=== PATIENT | female | born 1955 | race Asian ===

== ENCOUNTER 2025-08-18 18:41 | Inpatient (IN) | payer MEDICARE, MEDICAID ==
[~2025-08-18] VITALS: Ht 160 cm; Wt 63.5 kg
--- NOTE | 2025-08-18 19:03 | ELECTROCARDIOGRAPH REPORT ---
[facility] Test Date: 2025-08-18 Test Time: 18:55:40 Pat Name: ABBI JAUREGUI Department: EMERGENCY ROOM Room: Gender: F Try On Baster: : 1955 Requested By: BAKARI TURCIOS Order Number: [id number] Reading MD: Measurements Intervals [place] Rate: 84 P: 35 MI: 157 QRS: 31 QRSD: 90 T: -71 QT: 445 QTc: 527 Interpretive Statements Sinus rhythm Abnormal R-wave progression, early transition Abnormal T, consider ischemia, diffuse leads Prolonged QT interval Please click the below link to view image of tracing.
--- NOTE | 2025-08-18 19:05 | Physician Documentation ---
History of Present Illness ~ Chief Complaint: Chest Pain Stated Complaint: CARDIO Time Seen by MD: 18:59 HPI Patient presents to the emergency room sent from [facility] for evaluation of chest pain with EKG changes. Troponins negative. They were able to evaluate patient's EKG compared to last year and shows T-wave inversions in leads V2 through V5. Medication Reconciliation Allergies: Coded Allergies: amoxicillin (Verified Allergy, Unknown, RASH, HIVES, 08/18/25) denosumab (Verified Allergy, Unknown, JAW PAIN,, 08/18/25) lisinopril (Verified Allergy, Unknown, COUGH, 08/18/25) nitrofurantoin (Verified Allergy, Unknown, GI UPSET, 08/18/25) rosuvastatin (Verified Allergy, Unknown, INSOMNIA, DRY MOUTH, 08/18/25) Review of Systems ROS All review of systems negative except as per HPI Physical Exam Vital Signs: Temperature: 98.4, Source: Oral, Heart Rate: 94, Respiratory Rate: 17, BP: 190/77, Pulse Oximetry: 97, Weight: 20.450 Oxygen Flow Rate: 0 Physical Exam General: Patient is sleeping, easily arousable in no acute distress Head: Normocephalic and atraumatic. Eyes: Conjunctival normal. EOMI. PERRL. ENT: Mucous membranes moist. Neck: Supple, trachea is midline. Chest: Clear to auscultation bilaterally without rales, rhonchi, or wheezes. There is no accessory muscle use or retractions. Cardiac: RRR without murmurs, gallops, or rubs. Abd: Soft, nondistended, nontender, with normoactive bowel sounds. No guarding, rebound, or rigidity. Progress Results/Orders Results/Orders Orders - PABLO BUCKNER MD Cbc/Diff (08/18/25 19:01) BMP (08/18/25 19:01) Hs Troponin I W Calculations (08/18/25 19:01) Completed Orders - PABLO BUCKNER MD Electrocardiogram (08/18/25 ) Vital Signs 08/18/25 08/18/25 18:46 19:04 Temp 98.4 Pulse 94 Resp 17 17 B/P (MAP) 190/77 Pulse Ox 97 O2 Flow Rate 0 Medical Decision Making Additional information obtaine: other Findings Patient presented to the emergency room for evaluation of chest pain in the light of EKG changes. No active chest pain at this time and EKGs negative for ST-elevation. We will admit for further investigation. Heart Score: 4 Differential Dx:Considerations: Include: angina, aortic dissection, chest wall pain, cholelithiasis, CHF, costochondritis, esophageal reflux/spasm, gastritis, herpes zoster, myocardial infarction, pericarditis, pleuritis, pancreatitis, pneumonia, pneumothorax, pulmonary embolus, other Departure Admitted to Inpatient Unit: yes, to hospitalist Impression: Primary Impression: Chest pain Additional Impression: EKG changes Condition: Guarded Referrals: NO PRIMARY CARE PROVIDER (PCP) Signature Scribe Signature: No scribe Attestation: The note accurately reflects work and decisions made by me.Pablo Buckner MD 08/18/25 19:31 PABLO BUCKNER MD Aug 18, 2025 19:05
[2025-08-18 19:43] LABS: MEAN PLATELET VOLUME 9.2 FL (7.4-10.4); RED CELL DISTRIBUTION WIDTH 17.5 % (11.5-14.5)
[2025-08-18 20:01] LABS: LEUKOCYTE ESTERASE ,URINE TRACE (Neg); NITRITES, URINE NEGATIVE (Neg); OCCULT BLOOD,URINE NEGATIVE (Neg)
[2025-08-18 20:02] LABS: CREATININE 0.61 MG/DL (0.40-0.90); TOTAL CARBON DIOXIDE 23.4 MMOL/L (24-32); eCRCL 29 ML/MIN; eGFR > 90 ML/MIN
[2025-08-18 20:27] LABS: UA COLLECTION TYPE CLN CATCH MIDSTREAM
[2025-08-18 20:29] LABS: SQUAMOUS EPITHELIAL CELL,UR FEW /LPF (FEW)
--- NOTE | 2025-08-18 20:31 | HISTORY AND PHYSICAL-Residence ---
History & Physical Providers to CC Resident Creating Document: JUAN CARLOS MARTINEZ RES ~ History of Present Illness Reason for Admit\Complaint: Chest pain History of Present Illness The patient is a 69-year-old female with a history of type 2 diabetes mellitus, hypertension, hyperlipidemia, and osteoporosis who was transferred from [facility] for evaluation of chest pain and abnormal ECG findings. She reports intermittent left-sided chest pain, under her breast for approximately 10 days, described as pricking like, rated 4-5/10 in intensity. 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 She denies chest pain at rest and reports no clear additional aggravating or relieving factors. She denies shortness of breaths or diaphoresis. At the transferring facility, her ECG was compared with the prior ECG from last year and demonstrated new T-wave inversions in the anterior leads, prompting transfer for a higher level of care. Earlier today, she was evaluated by her primary care doctor Dr. Albarran at [facility], who referred her to the emergency department. Medications reviewed is notable for noncompliance with metformin and antihypertensive therapy. Allergies: Coded Allergies: amoxicillin (Verified Allergy, Unknown, RASH, HIVES, 08/18/25) denosumab (Verified Allergy, Unknown, JAW PAIN,, 08/18/25) lisinopril (Verified Allergy, Unknown, COUGH, 08/18/25) nitrofurantoin (Verified Allergy, Unknown, GI UPSET, 08/18/25) rosuvastatin (Verified Allergy, Unknown, INSOMNIA, DRY MOUTH, 08/18/25) Past Medical History Past Medical History Hypertension, hyperlipidemia, osteoporosis, diabetes type 2 Past Surgical History Surgical History Comment Right knee surgery Past Social History Social History Comment Patient lives with her in [place], happily . Denies smoking cigarettes, consuming alcohol, or using recreational drugs. She is independent in her daily activity and regularly do Jasvir Chi . ROS All Other Systems: Reviewed and Negative ROS As stated above in the HPI, otherwise all systems are reviewed and negative. Exam Vitals: Vital Signs Date Time Temp Pulse Resp B/P (MAP) Pulse Ox O2 Delivery O2 Flow Rate FiO2 08/18/25 19:04 17 08/18/25 18:46 98.4 94 97 0 General: Awake and Alert, no acute distress. HEENT: Conjunctiva pink, Sclera clear, Mucus Membranes moist. Neck: Supple without masses and tenderness. Resp: Unlabored. Lungs clear to auscultation bilaterally. Heart: 3rd heart sound auscultated. Heart rhythm irregular Abdomen: Soft and non tender no organomegaly Extremities: No cyanosis,clubbing or edema. Skin: Warm and Dry. Diagnostic Data Last Recorded Lab Results: 08/18/25 1910 Advance Care Planning Advanced Care plannin - 30 Minutes Additional Plan 1. Chest pain: HEART Score = 6, typical versus atypical angina Intermittent exertional chest pain with abnormal ECG changes at the transferring facility; concern for possible ischemic etiology Currently chest pain-free EKGs shows diffuse T-wave inversions and anterior and inferior leads. Troponins negative Admitted to telemetry floor for cardiac monitoring Lexiscan planned in the morning, NPO after midnight Transthoracic echo ordered Lipid panel, TSH, and hemoglobin A1c pending Aspirin, carvedilol, losartan, and atorvastatin started/resumed 2. Type 2 diabetes mellitus Prescribed metformin but noncompliant Hemoglobin A1c pending Hyperglycemia/hypoglycemia protocol in place 3. Hypertension, poorly controlled History of medication noncompliance. Home medications: Losartan 25 mg daily. We will resume home antihypertensive therapy and monitor blood pressure closely 4. Hyperlipidemia Home medications: Atorvastatin 30 mg p.o. daily Lipid panel pending Continue statin therapy 5. Osteoporosis Previously treated with Prolia, discontinued due to jaw pain No acute issues at this time Recommend outpatient PCP follow up Code status: Full code DVT prophylaxis: Darellx Juan Carlos Martinez Internal Medicine Resident, PGY-3 Patient assessed, case discussed with resident. I agree with the above assessment and plan with no changes. Jessica Choudhary MD Date of Service: Aug 18, 2025 Billing Provider: JESSICA CHOUDHARY MD, SHAMS, RES Aug 18, 2025 20:31 JESSICA CHOUDHARY MD Aug 18, 2025 21:08
[2025-08-18] MEDS ORDERED: ondansetron/PF 4mg/2ml inj IV PRN (20:40)
[2025-08-18] MEDS ORDERED: magnesium sulf-water 2g/50mL 50 ML IV PRN (20:40)
[2025-08-18] MEDS ORDERED: potassium Cl 40MEQ/1/2NS 520ml 520 ML IV PRN (20:40)
[2025-08-18] MEDS ORDERED: magnesium sulf-water 4G/100mL 100 ML IV PRN (20:40)
[2025-08-18] MEDS ORDERED: magnesium Cl slow-release 64mg tablet PO PRN (20:40)
[2025-08-18] MEDS ORDERED: potassium Cl 20 mEq SR tablet PO PRN ×2 (20:40)
[2025-08-18] MEDS ORDERED: aminophylline 250mg/10ml inj. IV PRN (20:45)
[2025-08-18] MEDS ORDERED: metoprolol tartrate 1mg/ml inj IV PRN (20:45)
[2025-08-18] MEDS ORDERED: LOSA25TA41 PO (20:57)
[2025-08-18] MEDS: aspirin 325mg tablet, delayed-release (Ecotrin) PO ONE (21:15)
[2025-08-19] VITALS (16 sets, daily range): BP systolic 107–180; BP diastolic 53–79; PULSE 74–133; RESP 14–24; TEMP 97.4–98.8; O2SAT 97–100
[2025-08-19] MEDS ORDERED: glucagon, human recombinant 1mg kit SUBCUT PRN (00:50)
[2025-08-19] MEDS ORDERED: dextrose 50%-water 50ml dispensing syringe IV PRN ×2 (00:50)
[2025-08-19] MEDS ORDERED: DEXTROSE 15 GM of carb/4 tabs (each vial/BOTTLE has 4 tablets) PO PRN ×2 (00:50)
[2025-08-19] MEDS: PERFLUTREN PROTEIN-A MICROSPHR (Optison) 0.22 MG/ML 3ML VIAL IV ONE (01:01)
[2025-08-19] MEDS ORDERED: ATOR-429 PO (03:42)
[2025-08-19] MEDS: INSULIN LISPRO 100 UNIT/ML INSULN.PEN MULTI-DOSE SQ SCH (07:00)
[2025-08-19] MEDS: aspirin 81mg, enteric-coated 1 TAB TABLET.DR PO SCH (08:00)
[2025-08-19] MEDS: K and/or MAG REPLACEMENT MC SCH (08:00)
[2025-08-19 08:07] LABS: MEAN PLATELET VOLUME 9.1 FL (7.4-10.4); RED CELL DISTRIBUTION WIDTH 16.9 % (11.5-14.5)
[2025-08-19 08:54] LABS: CHOL/HDL RATIO 4.1 (0.00-4.99); CREATININE 0.61 MG/DL (0.40-0.90); LDL CHOLESTEROL 154 MG/DL (50-100); TOTAL CARBON DIOXIDE 24.5 MMOL/L (24-32); eCRCL 73 ML/MIN; eGFR > 90 ML/MIN
[2025-08-19] MEDS: regadenoson 0.4mg/5ml syringe IV PRN (10:29)
--- NOTE | 2025-08-19 12:36 | RADIOLOGY REPORT ---
PROCEDURE: NM NM SUSHIL SCAN Exam Date: 08/19/2025 09:50 AM Reason for study/Clinical History: chest pain Comparison Study: None Myocardial Perfusion Study with SPECT TECHNIQUE: The patient received an intravenous injection of 7.2 mCi of technetium-99m sestamibi while at rest. After a short delay, SPECT tomographic images of the heart were obtained. The patient then went to the stress lab where they received an intravenous infusion of 0.[address] andard protocol. 28 mCi of technetium-99m sestamibi was injected intravenously immediately after the start of the lexiscan infusion. Gated SPECT tomographic images of the heart were acquired and processed. FINDINGS: No reversible perfusion defect. End diastolic volume: 46 mL End systolic volume: 15 mL The left ventricular ejection fraction is 67 %. (normal greater than 50%) IMPRESSION: No reversible defect. The left ventricular ejection fraction is 67 %.
--- NOTE | 2025-08-19 17:29 | PROGRESS NOTE- Residence ---
Progress Note - Resident Providers to CC Resident Creating Document: ОЛЬГА VALLE, RES ~ Antibiotic Timeout Antibiotic Ordered?: No Subjective Patient was seen and examined on bedside, she report yesterday she left sided chest pain , which was non radiating, sharp in nature and lasted for 5 minutes, pain occurs at rest, occured 2 times yesterday.she went to her regular doctor who suggested her to go to ER. Currently she is pain free Objective Vital Signs Date Time Temp Pulse Resp B/P (MAP) Pulse Ox O2 Delivery O2 Flow Rate FiO2 08/19/25 16:08 129/60 (83) 08/19/25 14:55 98.7 74 16 99 Room Air 08/19/25 08:00 0.0 Result Diagram: 08/19/25 0653 08/19/25 0653 General: awake, alert oriented to place, time, and person HEENT: No pallor present, no icterus, moist mucous membranes Neck: No masses and tenderness Resp: Unlabored. Lungs clear to auscultation bilaterally. Chest: Normal expansion. Cardiovascular: Regular Rate and rhythm, normal S1 and S2 without murmur, rub or gallop Abdomen: Soft and mildly tender in epigastrium, no organomegaly, no guarding and rigidity, bowel sounds present Neuro: No focal weakness in the upper and lower limb muscles, power of the muscles 5/5 bilateral upper and lower extremities, normal reflexes bilaterally. Cranial nerves intact Extremities: No cyanosis,clubbing or edema Skin: Warm and Dry. No lesions Psych: Normal affect Advance Care Planning Advanced Care plannin - 30 Minutes Assessment Assessment This is 69 year old female admitted for chest pain, further workup Plan Plan 1. Acute Coronary Syndrome Unstable angina Ekg shows multiple T wave inversions in multiple leads, normal axis, HR rate normal, no STEMI. HEART Score = 4 Currently chest pain-free Trops x2, 24, 25 Admitted to telemetry floor for cardiac monitoring Lexiscan showed=No reversible defect. Transthoracic echo ordered Continue aspirin 81 mg daily, carvediolol 3.12 mg BID 2. Type 2 diabetes mellitus HbA1c 6.7 Hyperglycemia/hypoglycemia protocol in place 3. Hypertension, poorly controlled History of medication noncompliance. Continue losartan 25 mg daily 4. Hyperlipidemia Continue home medication atorvastatin 80 mg daily p.o LDL 154 Cholesterol 217 Goal of LDL <70 5.Osteoporosis Previously treated with Prolia, discontinued due to jaw pain No acute issues at this time Recommend outpatient PCP follow up Code status: Full code DVT prophylaxis: Lovenox GI PROPHYLAXIS: PANTOPRAZOLE 40 MG po Disposition: Continue to monitor patient. Case has been discussed and reviewed by PGY2/PGY [address] Nahomy Valle PGY1 Date of Service: Aug 19, 2025 Billing Provider: MIGUEL ANGEL KIM MD, SANJAY, RES Aug 19, 2025 17:29
--- NOTE | 2025-08-19 17:44 | CARDIOLOGY REPORT ---
APPROVED REPORT EXAM: Comprehensive 2D, Doppler, and color-flow Echocardiogram. Patient Location: [facility] Blood Pressure: 180/76 mmHg Heart Rate: 85 bpm Indications Angina Hypertension Diabetes NO GROUP BURNER MACHINE NO Previous ECHO 2D Dimensions LA Diam 3.5 cm IVSd 1.2 (0.7-1.1cm) LVDd 4.4 cm PWd 1.0 (0.7-1.1cm) IVSs 1.6 (0.8-1.2cm) LVDs 2.9 (2.5-4.0cm) PWs 1.0 (0.8-1.2cm) LVOT Diameter 1.97 (1.8-2.4cm) LVEF(%) 63.7 (>50%) Ao Asc Diam. 3.10 cm IVC 12.25 mm FS (%) 34.4 % SV 56.6 ml CO 4.6 L/min M-Mode Dimensions Left Atrium(MM) 3.12 (2.5-4.0cm) Aortic Root 3.40 (2.2-3.7cm) Aortic Cusp Exc 1.91 (1.5-2.0cm) MV EPSS 0.6 (<0.5cm) Aortic Valve AoV Peak Earl. 157.7 cm/s AoV VTI 27.1 cm AO Peak GR. 9.9 mmHg AO Mean GR. 5 mmHg LVOT VTI 24.11 cm LVOT Peak Earl. 133.6 cm/s EMANI(VTI)/BSA 2.70 cm2/m2 EMANI (VTI) 2.70 cm2 AI P 1/2 Time 440 ms AV DI 0.89 % Mitral Valve MV E Velocity 50.0 cm/s MV Peak Gr. 3 mmHg MV DECEL TIME 380 ms MV A Velocity 77.5 cm/s MV PHT 64 ms E/A Ratio 0.6 MVA (PHT) 3.44 cm2 MV VMax 82.4 cm/s TDI Lateral E' P. V 8.58 cm/s E/Lateral E' 5.8 Tricuspid Valve TR P. Velocity 282 cm/s RAP ESTIMATE 10 mmHg TR Peak Gr. 32 mmHg RVSP 42 mmHg LEFT VENTRICLE The left ventricle is normal size with mild asymmetric septal hypertrophy. Overall systolic function is normal. Overall LVEF is 65-70%. RIGHT VENTRICLE RV is normal size and function. Estimated PA systolic pressure of 42 mm of mercury ATRIA The left atrium size is normal. AORTIC VALVE Trileaflet AV appears mildly sclerotic without stenosis. Moderate eccentric insufficiency against the anterior MV leaflet by color and spectral flow Doppler. MITRAL VALVE Mild mitral annular calcification without stenosis. Trace regurgitation by color and spectral flow Doppler. TRICUSPID VALVE The tricuspid valve is normal in structure with mild regurgitation by color and spectral flow Doppler. PULMONIC VALVE Pulmonic valve is grossly normal in structure with physiologic insufficiency by color and spectral flow Doppler. GREAT VESSELS The aortic root is normal in size. The ascending aorta is normal in size. The IVC is normal in size and collapses >50% with inspiration. PERICARDIUM Normal pericardium. No effusion. Other Information Study Quality: Adequate Conclusion Overall LVEF is 65-70%. The left ventricle is normal size with mild asymmetric septal hypertrophy. Overall systolic function is normal. RV is normal size and function. Estimated PA systolic pressure of 42 mm of mercury Mild mitral annular calcification without stenosis. Trace regurgitation by color and spectral flow Doppler. The tricuspid valve is normal in structure with mild regurgitation by color and spectral flow Doppler. Pulmonic valve is grossly normal in structure with physiologic insufficiency by color and spectral flow Doppler. Normal pericardium. No effusion.
[2025-08-19] MEDS: enoxaparin 30mg/0.3ml syringe SQ SCH (21:17)
[2025-08-20 02:00] VITALS: BP 125/64; PULSE 77; RESP 24; TEMP 97.4; O2SAT 98
[2025-08-20 06:46] LABS: MEAN PLATELET VOLUME 8.9 FL (7.4-10.4); RED CELL DISTRIBUTION WIDTH 17.1 % (11.5-14.5)
[2025-08-20 07:07] LABS: CREATININE 0.58 MG/DL (0.40-0.90); TOTAL CARBON DIOXIDE 24.4 MMOL/L (24-32); eCRCL 77 ML/MIN; eGFR > 90 ML/MIN
[2025-08-20 08:00] VITALS: RESP 18; O2SAT 98
[2025-08-20] MEDS: pantoprazole 40mg Tablet.DR PO SCH (08:46)
[2025-08-20 09:12] LABS: HBSAG SCREEN Negative (Negative); HEP B CORE AB, IGM Negative (Negative); HEP B CORE AB, TOT Negative (Negative)
[2025-08-20 10:45] VITALS: BP_SYST 118; BP_SYST 127; BP_SYST 134; BP_DIAS 67; BP_DIAS 68; BP_DIAS 70; PULSE 83; PULSE 85; PULSE 90
[2025-08-20] MEDS ORDERED: CYAN500T71 PO (12:56)
[2025-08-20] MEDS ORDERED: METF-900 PO (12:56)
[2025-08-20] MEDS ORDERED: COR3.125T PO (13:49)
[2025-08-20] MEDS ORDERED: ASPI81TA52 PO (13:49)
[2025-08-20] MEDS ORDERED: METF-1203 PO (14:03)
[2025-08-20] MEDS ORDERED: ATOR20TA66 PO (14:04)
[2025-08-20] MEDS ORDERED: LOSA50TA64 PO (14:08)
--- NOTE | 2025-08-20 19:20 | HISTORY AND PHYSICAL-Residence ---
History & Physical Providers to CC ~ History of Present Illness Allergies: Coded Allergies: amoxicillin (Verified Allergy, Unknown, RASH, HIVES, 08/18/25) denosumab (Verified Allergy, Unknown, JAW PAIN,, 08/18/25) lisinopril (Verified Allergy, Unknown, COUGH, 08/18/25) nitrofurantoin (Verified Allergy, Unknown, GI UPSET, 08/18/25) rosuvastatin (Verified Allergy, Unknown, INSOMNIA, DRY MOUTH, 08/18/25) Home Medications Home Medications Active Losartan Potassium 50 Mg Tablet 25 Mg PO DAILY 30 Days Atorvastatin Calcium 20 Mg Tablet 80 Mg PO DAILY 30 Days Metformin HCl 500 Mg Tablet 1 Tab PO TIDWM 30 Days Aspirin EC (Aspirin) 81 Mg Tablet.dr 1 Tab PO DAILY 30 Days Carvedilol 3.125 Mg Tablet 3.125 Mg PO BID 30 Days Reported Vitamin B-12* (Cyanocobalamin) 500 Mcg Tablet 1 Tab PO DAILY Metformin ER* (Metformin HCl) 500 Mg Tab.sr.24h 1 Tab PO DAILY Lipitor* (Atorvastatin Calcium) 80 Mg Tablet 1 Tablet PO HS Losartan Potassium 25 Mg Tablet 1 Tab PO DAILY ROS All Other Systems: Reviewed and Negative Exam Vitals: Vital Signs Date Time Temp Pulse Resp B/P (MAP) Pulse Ox O2 Delivery O2 Flow Rate FiO2 08/20/25 10:45 85 127/67 (87) 83 134/70 (91) 90 118/68 (85) 08/20/25 08:00 18 98 Room Air 0.0 08/20/25 02:00 97.4 Diagnostic Data Last Recorded Lab Results: 08/20/25 0607 08/20/25 0607 ОЛЬГА VALLE, RES Aug 20, 2025 19:20
--- NOTE | 2025-08-20 19:21 | DISCHARGE SUMMARY-Residence ---
Discharge Summary Providers to CC Resident Creating Document: TORIYUEОЛЬГАVANE MOORE ~ Discharge Summary Admission Diagnosis: Chest pain Hospital Course DATE OF ADMISSION: 08/18/25 DATE OF DISCHARGE: 08/20/25 Discharge Diagnosis\Comment: Acute Coronary syndrome, likely Unstable angina Type 2 diabetes Mellitus Hypertension Hyperlipidemia Osteporosis Operations\Procedures: Lexiscan was done Consultants: none Complications: none Condition on DC: Stable New Medications: Aspirin (Aspirin EC) 81 Mg Tablet.dr 1 TAB PO DAILY for 30 Days, #30 TAB Atorvastatin Calcium (Atorvastatin Calcium) 20 Mg Tablet 80 MG PO DAILY for 30 Days, #30 TAB Losartan Potassium (Losartan Potassium) 50 Mg Tablet 25 MG PO DAILY for 30 Days, #30 TAB Metformin HCl (Metformin HCl) 500 Mg Tablet 1 TAB PO TIDWM for 30 Days, #30 TAB Carvedilol (Carvedilol) 3.125 Mg Tablet 3.125 MG PO BID for 30 Days, #60 TAB Continued Medications: Atorvastatin Calcium* (Lipitor*) 80 Mg Tablet 1 TABLET PO HS, TABLET Cyanocobalamin* (Vitamin B-12*) 500 Mcg Tablet 1 TAB PO DAILY Losartan Potassium (Losartan Potassium) 25 Mg Tablet 1 TAB PO DAILY Metformin Hcl* (Metformin ER*) 500 Mg Tab.sr.24h 1 TAB PO DAILY Discharge Summary: Hospital Course This is 69 year old female with history of type 2 diabetes mellitus, hypertension, osteoporsis who transfered from [facility] for evaluation of chest pain.In view of this trops were performed which were negative, EKG shows T waves inversions in multiple leads, Lexiscan was also performed which did not s how any reversible defect.During hospitalization she received aspirin 325 mg initially followed by aspirin 81 mg, carvediolol 3.125 mg BID was started.Her LDL was 154, Cholestrol 217, her home medication atorvastatin 80 was continued.During her stay she was chest pain free all the time, losartan 25 mg was continued for her blood pressure control.She most likely had acute coronary syndrome (unstable angina),She was also placed on dvt prophylaxis lovenox and on telemetry,For her diabetes mellitus type 2, Hba1c 6.7,she was placed on low dose supplemental hyperglycemia/hypoglycemia protocol.however she refused infuslin.On Discharge we continue her metformin 500 mg.Patient was stable and ready for discharge. Discharge Instructions Follow up with PCP within 2 weeks Take metformin 500 mg daily after dinner Take aspirin 81 mg Take carvedilol 3.125 mg every 12 hours Continue losartan 25 mg daily. Take lipitor 80 mg daily Check your blood pressure daily Call 911 or go to nearest ER if you experience chest pain or shortness of breath. Physical Examination. General: awake, alert oriented to place, time, and person HEENT: No pallor present, no icterus, moist mucous membranes Neck: No masses and tenderness Resp: Unlabored. Lungs clear to auscultation bilaterally. Chest: Normal expansion. Cardiovascular: Regular Rate and rhythm, normal S1 and S2 without murmur, rub or gallop Abdomen: Soft and non tender in epigastrium, no organomegaly, no guarding and rigidity, bowel sounds present Neuro: No focal weakness in the upper and lower limb muscles, power of the muscles 5/5 bilateral upper and lower extremities, normal reflexes bilaterally. Cranial nerves intact Extremities: No cyanosis,clubbing or edema Skin: Warm and Dry. Psych: Normal affect Laboratory Tests WBC 6.9 RBC 4.60 HGB 11.2 HCT 35.1 NA 142 K 3.9 CREATININE 0.58 Imaging Lexiscan FINDINGS: No reversible perfusion defect. End diastolic volume: 46 mL End systolic volume: 15 mL The left ventricular ejection fraction is 67 %. (normal greater than 50%) IMPRESSION: No reversible defect. The left ventricular ejection fraction is 67 % Echo Conclusion Overall LVEF is 65-70%. The left ventricle is normal size with mild asymmetric septal hypertrophy. Overall systolic function is normal. RV is normal size and function. Estimated PA systolic pressure of 42 mm of mercury Mild mitral annular calcification without stenosis. Trace regurgitation by color and spectral flow Doppler. The tricuspid valve is normal in structure with mild regurgitation by color and spectral flow Doppler. Pulmonic valve is grossly normal in structure with physiologic insufficiency by color and spectral flow Doppler. Normal pericardium. No effusion. *Problems/Diagnosis: (1) Chest pain Status: Resolved Total Time Spent on D/C: Up to 30 Minutes Date of Service: Aug 20, 2025 Billing Provider: MIGUEL ANGEL KIM MD, SANJAY, RES Aug 20, 2025 19:21
== END 2025-08-20 14:00 | disposition home or self-care (01) | DRG 311 ==
LOC: ER 18:41 → ED HOLD 19:40 → PCU 3S 08-19 01:55
PROVIDERS: ADMIT Internal Medicine Pulmonary Disease; ATTEND Family Medicine
PROC: 4A02XM4 Measurement of Cardiac Total Activity, External Approach (ICD-10-PCS; principal; 2025-08-19)
PROC: 3E033HZ Introduction of Radioactive Substance into Peripheral Vein, Percutaneous Approach (ICD-10-PCS; 2025-08-19)
DX: I20.0 Unstable angina (principal); E11.9 Type 2 diabetes mellitus without complications; I10 Essential (primary) hypertension; Z88.1 Allergy status to other antibiotic agents; Z88.8 Allergy status to other drugs, medicaments and biological substances; M81.0 Age-related osteoporosis without current pathological fracture; E78.5 Hyperlipidemia, unspecified
CPT/HCPCS: 36415; 78452; 80048; 80061; 81001; 82948; 83036; 84439; 84443; 84484; 85025; 86704; 86705; 87081; 87088; 87340; 93005; 93017; 93306; 99285; A6258; A9500; G0378; J1650; J1815; J2785